=== PATIENT | male | born 1965 | race Caucasian/White ===

== ENCOUNTER → 2017-06-05 | Outpatient (REF) | payer MEDICARE, MEDICAID | LOC: M SFHCLERA 11:49 | DX: J02.9 Acute pharyngitis, unspecified (principal) ==

== ENCOUNTER 2018-12-10 14:17 | Observation (INO) | payer MEDICAID, MEDICARE ==
[~2018-12-10] VITALS: Ht 165.1 cm; Wt 110.9 kg
[2018-12-10] MEDS: LevoFLOXacin IV 750 MG in APPROPRIATE DILUENT 1 EA IV SCH (01:25)
[~2018-12-10 14:17] MED LIST: /LOR25TA PO; ASPI81TA7 PO; BENA20TA2 PO; FLEX10TA2 PO; IBUPPOW25 PO; LIDO1DIS2 TD; LIPI10TA PO; MAPA500T17 PO; NEXI1CAP3 PO
[2018-12-10] MEDS ORDERED: LOPR1TAB6 PO (14:32)
[2018-12-10] MEDS ORDERED: FLON1SPR (14:32)
[2018-12-10] MEDS ORDERED: ATOR80TA59 PO (14:32)
[2018-12-10] MEDS ORDERED: LOSA50TA88 PO (14:32)
[2018-12-10] MEDS ORDERED: IBUP200C25 PO (14:33)
[2018-12-10] MEDS ORDERED: OMEP40CA2 PO (14:33)
[2018-12-10] MEDS ORDERED: CYMB1CAP5 PO (14:34)
[2018-12-10 15:25] LABS: BASO % 0.3 % (0.0-1.0); HEMATOCRIT 49.6 % (42.0-52.0); HEMOGLOBIN 16.7 g/dl (13.5-17.5); LYMPH # 0.7 10^3/uL (1.5-4.5); LYMPH % 4.7 % (24.0-44.0); MEAN CORPUSCULAR HGB CONC 33.7 g/dl (32.0-36.5); MEAN CORPUSCULAR VOLUME 89.2 fl (80.0-96.0); NEUTROPHILS % 87.4 % (36.0-66.0); PLATELET COUNT, AUTOMATED 119 10^3/uL (150-450); RED BLOOD COUNT 5.56 10^6/uL (4.30-6.10); WHITE BLOOD COUNT 13.8 10^3/uL (4.0-10.0)
[2018-12-10 15:33] LABS: ALBUMIN 3.5 GM/DL (3.2-5.2); BILIRUBIN,DIRECT 0.6 MG/DL (0.0-0.2); BILIRUBIN,TOTAL 1.9 MG/DL (0.2-1.0); CALCIUM LEVEL 8.9 MG/DL (8.5-10.1); CREATININE FOR GFR 1.37 MG/DL (0.70-1.30); GLOMERULAR FILTRATION RATE 57.4 (>56); POTASSIUM SERUM 3.3 MEQ/L (3.5-5.1); TOTAL PROTEIN 6.6 GM/DL (6.4-8.2)
[2018-12-10] MEDS ORDERED: NS 1,000 ML IV ONE ×2 (16:15→21:00)
[2018-12-10] MEDS ORDERED: ISOVUE-370 76% 100ML VIAL (Q9967) As Ordered ONE (16:22)
[2018-12-10] MEDS: ONDANSETRON 4MG/2ML VIAL (J2405) IV PRN (16:30)
[2018-12-10] MEDS ORDERED: KETOROLAC 30 MG/ML VIAL (J1885) IV ONE (16:45)
--- NOTE | 2018-12-10 17:22 | REP ---
HISTORY: Diffuse abdominal pain. COMPARISON: None. CONTRAST: 100 mL [id number]. The lung bases are clear with the exception of dependent subsegmental atelectatic changes. The liver is without an abnormal enhancing lesion, however, scattered subcentimeter sized focal areas of low density are present, too small for CT characterization but likely representing either focal fatty deposits or tiny hepatic cysts. The gallbladder, spleen, pancreas, adrenal glands, and kidneys are within normal limits. The abdominal aorta and periaortic regions are within normal limits. The bowel loops and their mesenteries are within normal limits. CT PELVIS: The pelvic bowel loops and their mesenteries are within normal limits. There is evidence of thickening of the [place] of the urinary bladder, however, the urinary bladder is not adequately distended. This is seen in conjunction with evidence of mild fatty infiltration surrounding the urinary bladder. There is prostatomegaly and corpora amylacea. There is no free fluid or free air in the pelvis. There is no evidence of pelvic sidewall adenopathy. Bone window technique throughout the exam shows the osseous structures to be within normal limits for the patient's age. IMPRESSION: 1. There is evidence of urinary bladder wall thickening with mild perivesicular fatty infiltration as described above suggesting the clinical diagnosis of cystitis. This is seen in conjunction with prostatomegaly. 2. Tiny focal areas of low density in the hepatic parenchyma as described above. Electronically Signed by Devyn Concepcion DO 12/13/2018 12:02 P
--- NOTE | 2018-12-10 17:29 | REP ---
CHEST, TWO VIEWS: Two views of the chest are performed. There is mild bibasilar fibro atelectatic change. There is mild elevation of the right hemidiaphragm. The heart is not enlarged. The mediastinal silhouette appears unremarkable. There are mild degenerative changes of the spine. IMPRESSION: Mild bibasilar fibro atelectatic change. Electronically Signed by Qamar Bolden MD 12/14/2018 05:43 P
[2018-12-10] MEDS ORDERED: ACETAMINOPHEN 500 MG TAB PO ONE (18:45)
[2018-12-10] MEDS ORDERED: IMIPENEM/CILASTATIN 500 MG in D5W MINI-BAG PLUS 100 ML IV ONE (21:00)
[2018-12-10] MEDS ORDERED: ESOM1CAP5 PO (21:17)
[2018-12-10] MEDS ORDERED: ACET-683 PO (21:17)
[2018-12-10] MEDS ORDERED: ASPI81TA85 PO (21:17)
[2018-12-10] MEDS ORDERED: LIDO5DIS41 TD (21:17)
[2018-12-10] MEDS ORDERED: FLUTICASONE PROP 0.05% NASAL SPRAY 16 GM (FLONASE) PRN (22:30)
[2018-12-10] MEDS ORDERED: MAALOX 30 ML SUSP *UDC PO PRN (22:30)
[2018-12-10] MEDS ORDERED: LIDOCAINE 5% (LIDODERM) PATCH TD PRN (22:30)
[2018-12-10] MEDS ORDERED: MOM 30ML SUSPENSION UDC PO PRN (22:30)
--- NOTE | 2018-12-10 22:34 | HPEPDOC ---
General Date of Admission 12/10/18 Date of Service: Dec 10, 2018 Attending Physician: ARIANNA EVANS MD Chief Complaint The patient is a 53-year-old male admitted with a reason for visit of Groin Pain . Source: Patient Exam Limitations: No limitations Timing/Duration: Day(s) Severity: Moderate Associated Symptoms: Other (, dysuria) History of Present Illness 53 years old white male with past medical history of hypertension, hyperlipidemia, depression, back injury, presented with chief complaints of pain in lower abdomen with burning micturition since 1-2 days, as per patient, symptoms started spontaneously without any inciting factor. He has a severe groin pain along with burning in urination whenever he goes to bathroom, declines fever discharge of blood in the urine. Declines any trauma or sexual intercourse recently Patient is being admitted with the diagnosis of cystitis with possible possible prostatitis Home Medications Scheduled Aspirin (Aspir 81) 81 Mg Tablet.dr, 81 MG PO DAILY, (Reported) Atorvastatin Calcium (Atorvastatin Calcium) 80 Mg Tablet, 80 MG PO DAILY, (Reported) Duloxetine Hcl (Cymbalta) 30 Mg Capsule.dr, 30 MG PO TID, (Reported) Esomeprazole Magnesium (Esomeprazole Magnesium) 40 Mg Capsule.dr, 40 MG PO BID, (Reported) Losartan Potassium (Losartan Potassium) 50 Mg Tablet, 50 MG PO DAILY, (Reported) Metoprolol Tartrate (Lopressor) 50 Mg Tablet, 50 MG PO BID, (Reported) Scheduled PRN Acetaminophen (Acetaminophen) 500 Mg Tablet, 500 MG PO DAILY PRN for PAIN, (Reported) Fluticasone Propionate (Flonase Allergy Relief) 9.9 Ml [place].susp, 50 MCG NA DAILY PRN for CONGESTION, (Reported) Ibuprofen (Ibuprofen) 200 Mg Capsule, 200 MG PO DAILY PRN for PAIN, (Reported) Lidocaine (Lidoderm) 5% Adh..patch, 1 PATCH TD DAILY PRN for PAIN, (Reported) APPLIES TO LOWER BACK Allergies Coded Allergies: Penicillins (Verified Allergy, Severe, anaphylaxis, 12/10/18) hydrochlorothiazide (Verified Adverse Reaction, Intermediate, tachycardia, 12/10/18) diclofenac (Verified Adverse Reaction, Mild, anxiety, 12/10/18) Past Medical History Medical History Hypertension, hyperlipidemia, depression, back injury Surgical History Engram told removal and a cholesteatoma removal Family History Father has diabetes mellitus and hyperlipidemia and daughter has epilepsy Social History * Smoker: Denies, chew Alcohol: Denies Drugs: denies A-FIB/CHADSVASC A-FIB History Current/History of A-Fib/PAF?: No Review of Systems Constitutional: Denies: Chills, Fever, Malaise, Night Sweats, Weakness, Fatigue, Weight Loss, Lethargy, Other Eyes: Denies: Pain, Vision change, Conjunctivae inflammation, Eyelid inflammation, Redness, Other ENT: Denies: Head Aches, Ear Pain, Dysphagia, Sinus Congestion, Post Nasal Drip, Sore Throat, Epistaxis, Other Symptoms Skin: Denies: Rash, Lesions, Jaundice, Bruising, Itching, Dry, Breakdown, Nail Changes, Other Pulmonary: Denies: Dyspnea, Cough, Pleuritic Chest Pain, Other Symptoms Cardiovascular: Denies: Chest Pain, Palpitations, Orthopnea, Paroxysmal Noc. D yspnea, Edema, Lt Headedness, Other Symptoms Gastrointestinal: Denies: Nausea, Vomiting, Abdominal Pain, Diarrhea, Constipation, Melena, Hematochezia, Other Symptoms Genitourinary: Reports: Dysuria, Other Symptoms (, groin pain) Hematologic: Denies: Bruising, Bleeding Excessively, Petecchia, Purpura, Enlarged Lymph Nodes, Other Hematologic Endocrine: Denies: Polydipsia, Polyphagia, Polyuria, Heat Intolerance, Cold Intolerance, Other Endocrine Sx Musculoskeletal: Denies: Neck Pain, Back Pain, Shoulder Pain, Arm Pain, Hand Pain, Leg Pain, Foot Pain, Joint Pain, Muscle Pain, Spasms, Other Symptoms Neurological: Denies: Weakness, Numbness, Incoordination, Change in speech, Confusion, Seizures, Other Symptoms Psych: Denies: Mood Normal, Anxiety, Depression, Memory Issues, Thoughts of Self Harm, Anger, Thoughts of Harming Other, Other Psych Physical Examination General Exam: Positive: Alert, Cooperative Eye Exam: Positive: PERRLA, Conjunctiva & lids normal ENT Exam: Positive: Atraumatic, Mucous membr. moist/pink Neck Exam: Positive: Supple Chest Exam: Positive: Clear to auscultation, Normal air movement Heart Exam: Positive: Rate Normal, Normal S1, Normal S2 Abdomen Exam: Positive: Normal bowel sounds, Soft Extremity Exam: Positive: Edema Skin Exam: Positive: Nl turgor and temperature Neuro Exam: Positive: Normal Gait, Normal Speech Psych Exam: Positive: Mental status NL, Mood NL, Oriented x 3 Vital Signs Vital Signs Date Time Temp Pulse Resp B/P (MAP) Pulse Ox O2 Delivery O2 Flow Rate FiO2 12/10/18 21:32 99.5 92 109/73 (85) 98 12/10/18 18:25 18 Room Air Laboratory Data Labs 24H Laboratory Tests 2 12/10/18 14:54: Immature Granulocyte % (Auto) 0.6, White Blood Count 13.8H, Red Blood Count 5.56, Hemoglobin 16.7, Hematocrit 49.6, Mean Corpuscular Volume 89.2, Mean Corpuscular Hemoglobin 30.0, Mean Corpuscular Hemoglobin Concent 33.7, Red Cell Distribution Width 13.3, Platelet Count 119L, Neutrophils (%) (Auto) 87.4H, Lymphocytes (%) (Auto) 4.7L, Monocytes (%) (Auto) 7.0H, Eosinophils (%) (Auto) 0.0, Basophils (%) (Auto) 0.3, Neutrophils # (Auto) 12.0H, Lymphocytes # (Auto) 0.7L, Monocytes # (Auto) 1.0H, Eosinophils # (Auto) 0.0, Basophils # (Auto) 0.0, Nucleated Red Blood Cells % (auto) 0.0, Anion Gap 9, Glomerular Filtration Rate 57.4, Lactic Acid Level 2.1*H, Calcium Level 8.9, Aspartate Amino Transf (AST/SGOT) 18, Alanine Aminotransferase (ALT/SGPT) 29, Alkaline Phosphatase 91, Total Bilirubin 1.9H, Direct Bilirubin 0.6H, Total Protein 6.6, Albumin 3.5, Albumin/Globulin Ratio 1.13, Amylase Level 31, Lipase 95 12/10/18 14:58: Urine Color SCOOBY, Urine Appearance CLOUDYH, Urine pH 7.0, Urine Specific [place] 1.032, Urine Protein 3+H, Urine Glucose (UA) NEGATIVE, Urine Ketones TRACEH, Urine Blood 3+H, Urine Nitrite NEGATIVE, Urine Bilirubin NEGATIVE, Urine Urobilinogen 4.0H, Urine Leukocyte Esterase 3+H, Urine WBC (Auto) TNTCH, Urine RBC (Auto) TNTCH, Urine Hyaline Casts (Auto) 0, Urine Bacteria (Auto) NEGATIVE, Urine Squamous Epithelial Cells 0, Urine Mucus (Auto) SMALL, Urine Sperm (Auto) CBC/BMP Laboratory Tests 12/10/18 14:54 Red Blood Count 5.56, Mean Corpuscular Volume 89.2, Mean Corpuscular Hemoglobin 30.0, Mean Corpuscular Hemoglobin Concent 33.7, Red Cell Distribution Width 13.3, Neutrophils (%) (Auto) 87.4 H, Lymphocytes (%) (Auto) 4.7 L, Monocytes (%) (Auto) 7.0 H, Eosinophils (%) (Auto) 0.0, Basophils (%) (Auto) 0.3, Neutrophils # (Auto) 12.0 H, Lymphocytes # (Auto) 0.7 L, Monocytes # (Auto) 1.0 H, Eosinophils # (Auto) 0.0, Basophils # (Auto) 0.0 Microbiology Microbiology 12/10/18 Blood Culture, Received Pending 12/10/18 Urine Culture, Received Pending Problems (1) Cystitis Status: Acute Problem Text: Patient most likely has acute cystitis of unknown etiology. Also possibly hairs, enlarged prostate with prostatitis. With patient to medical floor IV fluids normal saline 100 mL per hour Antibiotics to Levaquin 750 mg IV every 24 hours Urine cultures , Urine for GC and chlamydia , Tylenol when necessary Percocet when necessary A.m. labs DVT prophylaxis with Lovenox (2) Prostatitis Status: Acute Problem Text: We'll continue Levaquin as above Awaiting urine cultures Plan / VTE VTE Prophylaxis Ordered?: Yes ARIANNA EVANS MD Dec 10, 2018 22:34
[2018-12-10] MEDS: NS 1,000 ML IV SCH (23:27)
[2018-12-11 00:07] VITALS: BP 125/83
[2018-12-11] MEDS: METOPROLOL TART 50 MG TAB PO SCH ×3 (00:39→20:54)
[2018-12-11] MEDS: DULoxetine 30 MG CAP (CYMBALTA) PO SCH ×4 (00:39→20:50)
[2018-12-11] MEDS: ONDANSETRON 4MG/2ML VIAL (J2405) IV PRN (03:40)
[2018-12-11] MEDS: PERCOCET 5MG/325MG TAB PO PRN ×3 (03:40→20:54)
[2018-12-11] MEDS: ENOXAPARIN 40 MG/0.4 ML SYRINGE (J1650) SC SCH (06:32)
[2018-12-11 06:36] VITALS: BP 120/80
[2018-12-11] MEDS: NS 1,000 ML IV SCH ×2 (08:12→17:59)
[2018-12-11] MEDS: ATORVASTATIN 20 MG TAB PO SCH (08:12)
[2018-12-11] MEDS: DOCUSATE SODIUM 100 MG CAP PO SCH ×2 (08:13→20:42)
[2018-12-11] MEDS: ASPIRIN 81 MG ENTERIC TAB PO SCH (08:13)
[2018-12-11] MEDS: LOSARTAN 50 MG TAB PO SCH (08:13)
[2018-12-11 08:23] LABS: HEMATOCRIT 44.3 % (42.0-52.0); MEAN CORPUSCULAR VOLUME 91.2 fl (80.0-96.0); RED BLOOD COUNT 4.86 10^6/uL (4.30-6.10); WHITE BLOOD COUNT 10.2 10^3/uL (4.0-10.0)
[2018-12-11 08:50] LABS: ALBUMIN 2.7 GM/DL (3.2-5.2); BILIRUBIN,TOTAL 1.1 MG/DL (0.2-1.0); CALCIUM LEVEL 7.8 MG/DL (8.5-10.1); CREATININE FOR GFR 1.32 MG/DL (0.70-1.30); GLOMERULAR FILTRATION RATE 59.9 (>56); MAGNESIUM LEVEL 1.6 MG/DL (1.8-2.4); POTASSIUM SERUM 3.3 MEQ/L (3.5-5.1); TOTAL PROTEIN 5.7 GM/DL (6.4-8.2)
[2018-12-11] MEDS ORDERED: POTASSIUM CHLORIDE 10 MEQ SR TABLET PO ONE (09:00)
[2018-12-11] MEDS ORDERED: MAG SULF 1GM/100ML (MAG RUN) 1 GM in APPROPRIATE DILUENT 1 EA IV ONE (09:00)
[2018-12-11 09:01] LABS: HEMOGLOBIN 14.6 g/dl (13.5-17.5); PLATELET COUNT, AUTOMATED 92 10^3/uL (150-450)
--- NOTE | 2018-12-11 09:38 | ECGEPIP ---
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
[2018-12-11] MEDS: ACETAMINOPHEN TAB 650MG DOSE (2X325MG) PO PRN (09:49)
--- NOTE | 2018-12-11 12:30 | IPNPDOC ---
Date Seen The patient was seen on 12/11/18. Progress Note SUBJECTIVE: still c/o dysuria requesting something for pain. on iv levaquin due to allergy to penicillin. no c/o n/v/flank pain. c/o malodorous cloudy urine. on pyridium for pain, and anxious to go home soon. OBJECTIVE: Physical Examination VITALS: PLS SEE BELOW General Exam: Positive: Alert, Cooperative Eye Exam: Positive: PERRLA, Conjunctiva & lids normal ENT Exam: Positive: Atraumatic, Mucous membr. moist/pink Neck Exam: Positive: Supple Chest Exam: Positive: Clear to auscultation, Normal air movement Heart Exam: Positive: Rate Normal, Normal S1, Normal S2 Abdomen Exam: Positive: Normal bowel sounds, Soft Extremity Exam: Positive: Edema Skin Exam: Positive: Nl turgor and temperature Neuro Exam: Positive: Normal Gait, Normal Speech Psych Exam: Positive: Mental status NL, Mood NL, Oriented x 3 ADMISSION LABORATORY DATA 12/10/18 14:54: Immature Granulocyte % (Auto) 0.6, White Blood Count 13.8H, Red Blood Count 5.56, Hemoglobin 16.7, Hematocrit 49.6, Mean Corpuscular Volume 89.2, Mean Corpuscular Hemoglobin 30.0, Mean Corpuscular Hemoglobin Concent 33.7, Red Cell Distribution Width 13.3, Platelet Count 119L, Neutrophils (%) (Auto) 87.4H, Lymphocytes (%) (Auto) 4.7L, Monocytes (%) (Auto) 7.0H, Eosinophils (%) (Auto) 0.0, Basophils (%) (Auto) 0.3, Neutrophils # (Auto) 12.0H, Lymphocytes # (Auto) 0.7L, Monocytes # (Auto) 1.0H, Eosinophils # (Auto) 0.0, Basophils # (Auto) 0.0, Nucleated Red Blood Cells % (auto) 0.0, Anion Gap 9, Glomerular Filtration Rate 57.4, Lactic Acid Level 2.1*H, Calcium Level 8.9, Aspartate Amino Transf (AST/SGOT) 18, Alanine Aminotransferase (ALT/SGPT) 29, Alkaline Phosphatase 91, Total Bilirubin 1.9H, Direct Bilirubin 0.6H, Total Protein 6.6, Albumin 3.5, Albumin/Globulin Ratio 1.13, Amylase Level 31, Lipase 95 12/10/18 14:58: Urine Color SCOOBY, Urine Appearance CLOUDYH, Urine pH 7.0, Urine Specific [place] 1.032, Urine Protein 3+H, Urine Glucose (UA) NEGATIVE, Urine Ketones TRACEH, Urine Blood 3+H, Urine Nitrite NEGATIVE, Urine Bilirubin NEGATIVE, Urine Urobilinogen 4.0H, Urine Leukocyte Esterase 3+H, Urine WBC (Auto) TNTCH, Urine RBC (Auto) TNTCH, Urine Hyaline Casts (Auto) 0, Urine Bacteria (Auto) NEGATIVE, Urine Squamous Epithelial Cells 0, Urine Mucus (Auto) SMALL, Urine Sperm (Auto) CBC/BMP Laboratory Tests 12/10/18 14:54 Red Blood Count 5.56, Mean Corpuscular Volume 89.2, Mean Corpuscular Hemoglobin 30.0, Mean Corpuscular Hemoglobin Concent 33.7, Red Cell Distribution Width 13.3, Neutrophils (%) (Auto) 87.4 H, Lymphocytes (%) (Auto) 4.7 L, Monocytes (%) (Auto) 7.0 H, Eosinophils (%) (Auto) 0.0, Basophils (%) (Auto) 0.3, Neutrophils # (Auto) 12.0 H, Lymphocytes # (Auto) 0.7 L, Monocytes # (Auto) 1.0 H, Eosin ophils # (Auto) 0.0, Basophils # (Auto) 0.0 Microbiology Microbiology 12/10/18 Blood Culture, Received Pending 12/10/18 Urine Culture, Received Pending LABORATORY DATA, IMAGING STUDIES, MICROBIOLOGY: PLS SEE BELOW ASSESSMENT AND PLAN:53 years old white male with past medical history of hypertension, hyperlipidemia, depression, back injury, presented with chief complaints of pain in lower abdomen with burning micturition since 1-2 days, as per patient, symptoms started spontaneously without any inciting factor. He has a severe groin pain along with burning in urination whenever he goes to bathroom, declines fever discharge of blood in the urine. Declines any trauma or sexual intercourse recently Patient is being admitted with the diagnosis of cystitis with possible possible prostatitis CURRENT ACUTE ISSUES: Cystitis Patient most likely has acute cystitis of unknown etiology. Also possibly hairs, enlarged prostate with prostatitis. With patient to medical floor IV fluids normal saline 100 mL per hour Antibiotics to Levaquin 750 mg IV every 24 hours Urine cultures , Urine for GC and chlamydia , Tylenol when necessary Percocet when necessary A.m. labs DVT prophylaxis with Lovenox Prostatitis We'll continue Levaquin as above Awaiting urine cultures Hypertension, stable continued on home meds hyperlipidemia, continued on home meds depression, no acute suicidal/homicidal ideation or plan GERD no c/o pain FENG may resume home cpap morbid obesity bmi 40.7 complicating care Chronic back pain outpt fu. Plan / VTE VTE Prophylaxis Ordered?: Yes VS, I&O, 24H, Fishbone Vital Signs/I&O Vital Signs Date Time Temp Pulse Resp B/P (MAP) Pulse Ox O2 Delivery O2 Flow Rate FiO2 12/11/18 08:13 82 122/82 12/11/18 06:36 98.5 16 97 12/10/18 18:25 Room Air I&O- Last 24 Hours up to 6 AM 12/11/18 06:00 Intake Total 610 ml Output Total 100 ml Balance 510 ml Laboratory Data 24H LABS Laboratory Tests 2 12/10/18 14:54: Immature Granulocyte % (Auto) 0.6, White Blood Count 13.8H, Red Blood Count 5.56, Hemoglobin 16.7, Hematocrit 49.6, Mean Corpuscular Volume 89.2, Mean Corpuscular Hemoglobin 30.0, Mean Corpuscular Hemoglobin Concent 33.7, Red Cell Distribution Width 13.3, Platelet Count 119L, Neutrophils (%) (Auto) 87.4H, Lymphocytes (%) (Auto) 4.7L, Monocytes (%) (Auto) 7.0H, Eosinophils (%) (Auto) 0.0, Basophils (%) (Auto) 0.3, Neutrophils # (Auto) 12.0H, Lymphocytes # (Auto) 0.7L, Monocytes # (Auto) 1.0H, Eosinophils # (Auto) 0.0, Basophils # (Auto) 0.0, Nucleated Red Blood Cells % (auto) 0.0, Anion Gap 9, Glomerular Filtration Rate 57.4, Lactic Acid Level 2.1*H, Calcium Level 8.9, Aspartate Amino Transf (AST/SGOT) 18, Alanine Aminotransferase (ALT/SGPT) 29, Alkaline Phosphatase 91, Total Bilirubin 1.9H, Direct Bilirubin 0.6H, Total Protein 6.6, Albumin 3.5, Albumin/Globulin Ratio 1.13, Amylase Level 31, Lipase 95 7/26/19 14:58: Urine Color SCOO[place], Urine Appearance CLOUDYH, Urine pH 7.0, Urine Specific [place] 1.032, Urine Protein 3+H, Urine Glucose (UA) NEGATIVE, Urine Ketones TRACEH, Urine Blood 3+H, Urine Nitrite NEGATIVE, Urine Bilirubin NEGATIVE, Urine Urobilinogen 4.0H, Urine Leukocyte Esterase 3+H, Urine WBC (Auto) TNTCH, Urine RBC (Auto) TNTCH, Urine Hyaline Casts (Auto) 0, Urine Bacteria (Auto) NEGATIVE, Urine Squamous Epithelial Cells 0, Urine Mucus (Auto) SMALL, Urine Sperm (Auto) 12/11/18 08:05: Anion Gap 6L, Glomerular Filtration Rate 59.9, Calcium Level 7.8L, Aspartate Amino Transf (AST/SGOT) 18, Alanine Aminotransferase (ALT/SGPT) 21, Alkaline Phosphatase 77, Total Bilirubin 1.1H, Total Protein 5.7L, Albumin 2.7#L, Albumin/Globulin Ratio 0.90L, Blood Urea Nitrogen 25H, Creatinine 1.32H, Sodium Level 137, Potassium Level 3.3L, Chloride Level 103, Carbon Dioxide Level 28, Magnesium Level 1.6L CBC/BMP Laboratory Tests 12/10/18 14:54 Red Blood Count 5.56, Mean Corpuscular Volume 89.2, Mean Corpuscular Hemoglobin 30.0, Mean Corpuscular Hemoglobin Concent 33.7, Red Cell Distribution Width 13.3, Neutrophils (%) (Auto) 87.4 H, Lymphocytes (%) (Auto) 4.7 L, Monocytes (%) (Auto) 7.0 H, Eosinophils (%) (Auto) 0.0, Basophils (%) (Auto) 0.3, Neutrophils # (Auto) 12.0 H, Lymphocytes # (Auto) 0.7 L, Monocytes # (Auto) 1.0 H, Eosinophils # (Auto) 0.0, Basophils # (Auto) 0.0 12/11/18 08:05 Calcium Level 7.8 L, Aspartate Amino Transf (AST/SGOT) 18, Alanine Aminotransferase (ALT/SGPT) 21, Alkaline Phosphatase 77, Total Bilirubin 1.1 H, Total Protein 5.7 L, Albumin 2.7 #L Microbiology Microbiology 12/11/18 Blood Culture, Received Pending 12/10/18 Blood Culture, Received Pending 12/10/18 Urine Culture, Received Pending VIMAL REYNA MD Dec 11, 2018 09:01
[2018-12-11 14:00] VITALS: BP 136/82
[2018-12-11] MEDS: PHENAZOPYRIDINE 100 MG TAB PO SCH ×2 (15:08→20:53)
[2018-12-11] MEDS ORDERED: **NOTE PATIENT COMMENT** MISC XX SCH (21:00)
[2018-12-11 22:00] VITALS: BP 139/91
[2018-12-11] MEDS: LevoFLOXacin IV 750 MG in APPROPRIATE DILUENT 1 EA IV SCH (23:42)
[2018-12-12] MEDS: PERCOCET 5MG/325MG TAB PO PRN (03:28)
[2018-12-12] MEDS: NS 1,000 ML IV SCH (05:07)
[2018-12-12] MEDS: ENOXAPARIN 40 MG/0.4 ML SYRINGE (J1650) SC SCH (05:07)
[2018-12-12 06:00] VITALS: BP 112/72
[2018-12-12] MEDS ORDERED: BACITAB PO (07:20)
[2018-12-12] MEDS ORDERED: LEVA750T7 PO (07:20)
[2018-12-12] MEDS ORDERED: PHEN-593 PO (07:21)
[2018-12-12] MEDS ORDERED: POTASSIUM CHLORIDE 10 MEQ SR TABLET PO ONE (08:00)
[2018-12-12 08:09] LABS: BASO % 0.4 % (0.0-1.0); EOS # 0.1 10^3/uL (0.0-0.50); EOS % 2.3 % (0.0-3.0); HEMATOCRIT 46.6 % (42.0-52.0); HEMOGLOBIN 15.3 g/dl (13.5-17.5); LYMPH # 0.5 10^3/uL (1.5-4.5); LYMPH % 10.2 % (24.0-44.0); MEAN CORPUSCULAR HEMOGLOBIN 30.3 pg (27.0-33.0); MEAN CORPUSCULAR HGB CONC 32.8 g/dl (32.0-36.5); MEAN CORPUSCULAR VOLUME 92.3 fl (80.0-96.0); MONO # 0.3 10^3/uL (0.0-0.8); MONO % 6.2 % (0.0-5.0); NEUTROPHILS # 4.3 10^3/uL (1.8-7.7); NEUTROPHILS % 80.3 % (36.0-66.0); RED BLOOD COUNT 5.05 10^6/uL (4.30-6.10); WHITE BLOOD COUNT 5.3 10^3/uL (4.0-10.0)
[2018-12-12 08:12] LABS: PLATELET COUNT, AUTOMATED 95 10^3/uL (150-450)
[2018-12-12 08:22] LABS: BLOOD UREA NITROGEN 18 MG/DL (7-18); CALCIUM LEVEL 7.7 MG/DL (8.5-10.1); CARBON DIOXIDE LEVEL 27 MEQ/L (21-32); CHLORIDE LEVEL 102 MEQ/L (98-107); CREATININE FOR GFR 1.22 MG/DL (0.70-1.30); GLOMERULAR FILTRATION RATE > 60.0 (>56); GLUCOSE, FASTING 91 MG/DL (70-100); POTASSIUM SERUM 3.6 MEQ/L (3.5-5.1); SODIUM LEVEL 136 MEQ/L (136-145)
[2018-12-12] MEDS: LOSARTAN 50 MG TAB PO SCH (08:31)
[2018-12-12] MEDS: DULoxetine 30 MG CAP (CYMBALTA) PO SCH (08:31)
[2018-12-12] MEDS: PHENAZOPYRIDINE 100 MG TAB PO SCH (08:31)
[2018-12-12] MEDS: ASPIRIN 81 MG ENTERIC TAB PO SCH (08:31)
[2018-12-12] MEDS: DOCUSATE SODIUM 100 MG CAP PO SCH (08:31)
[2018-12-12] MEDS: ATORVASTATIN 20 MG TAB PO SCH (08:31)
[2018-12-12 08:32] VITALS: BP 124/72
[2018-12-12] MEDS: METOPROLOL TART 50 MG TAB PO SCH (08:32)
[2018-12-12] MEDS: ACETAMINOPHEN TAB 650MG DOSE (2X325MG) PO PRN (08:32)
--- NOTE | 2018-12-12 15:05 | DS.PDOC ---
Discharge Summary General Date of Admission Dec 10, 2018 at 14:18 Date of Discharge December 12, 2018 Discharge Summary DISCHARGE DIAGNOSES: ACUTE BACTERIAL PROSTATITIS CYSTITIS SEPSIS DUE TO CYSTITIS MORBID OBESITY BMI 40 HTN GERD DYSLIPIDEMIA BPH DEPRESSION FENG CHRONIC BACK PAIN DISCHARGE MEDICATIONS: PLS SEE BELOW HISTORY OF PRESENTING ILLNESS: 53 years old white male with past medical history of hypertension, hyperlipidemia, depression, back injury, presented with chief complaints of pain in lower abdomen with burning micturition since 1-2 days, as per patient, symptoms started spontaneously without any inciting factor. He has a severe groin pain along with burning in urination whenever he goes to bathroom, declines fever discharge of blood in the urine. Declines any trauma or sexual intercourse recently Patient is being admitted with the diagnosis of cystitis with possible possible prostatitis HOSPITAL COURSE: Cystitis Patient most likely has acute cystitis of unknown etiology. Also possibly enlarged prostate with prostatitis. admitted to medical floor S/P IV fluids normal saline 100 mL per hour Antibiotics to Levaquin 750 mg IV every 24 hours Urine cultures , Urine for GC and chlamydia , Tylenol when necessary Percocet when necessary urine cx: E coli sensitive to levaquin Prostatitis We'll continue Levaquin as above Awaiting urine cultures Hypertension, stable continued on home meds hyperlipidemia, continued on home meds depression, no acute suicidal/homicidal ideation or plan GERD no c/o pain FENG may resume home cpap morbid obesity bmi 40.7 complicating care Chronic back pain outpt fu. Plan / VTE VTE Prophylaxis Ordered?: Yes DISCHARGE Physical Examination VITALS: PLS SEE BELOW General Exam: Positive: Alert, Cooperative Eye Exam: Positive: PERRLA, Conjunctiva & lids normal ENT Exam: Positive: Atraumatic, Mucous membr. moist/pink Neck Exam: Positive: Supple Chest Exam: Positive: Clear to auscultation, Normal air movement Heart Exam: Positive: Rate Normal, Normal S1, Normal S2 Abdomen Exam: Positive: Normal bowel sounds, Soft Extremity Exam: Positive: Edema Skin Exam: Positive: Nl turgor and temperature Neuro Exam: Positive: Normal Gait, Normal Speech Psych Exam: Positive: Mental status NL, Mood NL, Oriented x 3 ADMISSION LABORATORY DATA 12/10/18 14:54: Immature Granulocyte % (Auto) 0.6, White Blood Count 13.8H, Red Blood Count 5.56, Hemoglobin 16.7, Hematocrit 49.6, Mean Corpuscular Volume 89.2, Mean Corpuscular Hemoglobin 30.0, Mean Corpuscular Hemoglobin Concent 33.7, Red Cell Distribution Width 13.3, Platelet Count 119L, Neutrophils (%) (Auto) 87.4H, Lymphocytes (%) (Auto) 4.7L, Monocytes (%) (Auto) 7.0H, Eosinophils (%) (Auto) 0.0, Basophils (%) (Auto) 0.3, Neutrophils # (Auto) 12.0H, Lymphocytes # (Auto) 0.7L, Monocytes # (Auto) 1.0H, Eosinophils # (Auto) 0.0, Basophils # (Auto) 0.0, Nucleated Red Blood Cells % (auto) 0.0, Anion Gap 9, Glomerular Filtration Rate 57.4, Lactic Acid Level 2.1*H, Calcium Level 8.9, Aspartate Amino Transf (AST/SGOT) 18, Alanine Aminotransferase (ALT/SGPT) 29, Alkaline Phosphatase 91, Total Bilirubin 1.9H, Direct Bilirubin 0.6H, Total Protein 6.6, Albumin 3.5, Albumin/Globulin Ratio 1.13, Amylase Level 31, Lipase 95 12/10/18 14:58: Urine Color SCOOBY, Urine Appearance CLOUDYH, Urine pH 7.0, Urine Specific [place] 1.032, Urine Protein 3+H, Urine Glucose (UA) NEGATIVE, Urine Ketones TRACEH, Urine Blood 3+H, Urine Nitrite NEGATIVE, Urine Bilirubin NEGATIVE, Urine Urobilinogen 4.0H, Urine Leukocyte Esterase 3+H, Urine WBC (Auto) TNTCH, Urine RBC (Auto) TNTCH, Urine Hyaline Casts (Auto) 0, Urine Bacteria (Auto) NEGATIVE, Urine Squamous Epithelial Cells 0, Urine Mucus (Auto) SMALL, Urine Sperm (Auto) CBC/BMP Laboratory Tests 12/10/18 14:54 Red Blood Count 5.56, Mean Corpuscular Volume 89.2, Mean Corpuscular Hemoglobin 30.0, Mean Corpuscular Hemoglobin Concent 33.7, Red Cell Distribution Width 13.3, Neutrophils (%) (Auto) 87.4 H, Lymphocytes (%) (Auto) 4.7 L, Monocytes (%) (Auto) 7.0 H, Eosinophils (%) (Auto) 0.0, Basophils (%) (Auto) 0.3, Neutrophils # (Auto) 12.0 H, Lymphocytes # (Auto) 0.7 L, Monocytes # (Auto) 1.0 H, Eosinophils # (Auto) 0.0, Basophils # (Auto) 0.0 Microbiology Microbiology 12/10/18 Blood Culture, Received Pending 12/10/18 Urine Culture, Received Pending LABORATORY DATA, IMAGING STUDIES, MICROBIOLOGY: PLS SEE BELOW TIME SPENT ON DISCHARGE: 32 MINUTES Vital Signs/I&Os Vital Signs Date Time Temp Pulse Resp B/P (MAP) Pulse Ox O2 Delivery O2 Flow Rate FiO2 12/12/18 08:32 94 124/72 12/12/18 06:00 98.6 18 98 12/10/18 18:25 Room Air I&O- Last 24 Hours up to 6 AM 12/12/18 06:00 Intake Total 1990 ml Output Total 675 ml Balance 1315 ml Laboratory Data Labs 24H Laboratory Tests 2 12/12/18 07:47: Immature Granulocyte % (Auto) 0.6, White Blood Count 5.3, Red Blood Count 5.05, Hemoglobin 15.3, Hematocrit 46.6, Mean Corpuscular Volume 92.3, Mean Corpuscular Hemoglobin 30.3, Mean Corpuscular Hemoglobin Concent 32.8, Red Cell Distribution Width 13.7, Platelet Count 95L, Neutrophils (%) (Auto) 80.3H, Lymphocytes (%) (Auto) 10.2L, Monocytes (%) (Auto) 6.2H, Eosinophils (%) (Auto) 2.3, Basophils (%) (Auto) 0.4, Neutrophils # (Auto) 4.3, Lymphocytes # (Auto) 0.5L, Monocytes # (Auto) 0.3, Eosinophils # (Auto) 0.1, Basophils # (Auto) 0.0, Nucleated Red Blood Cells % (auto) 0.0, Anion Gap 7L, Glomerular Filtration Rate > 60.0, Blood Urea Nitrogen 18, Creatinine 1.22, Sodium Level 136, Potassium Level 3.6, Chloride Level 102, Carbon Dioxide Level 27, Calcium Level 7.7L CBC/BMP Laboratory Tests 12/12/18 07:47 Red Blood Count 5.05, Mean Corpuscular Volume 92.3, Mean Corpuscular Hemoglobin 30.3, Mean Corpuscular Hemoglobin Concent 32.8, Red Cell Distribution Width 13.7, Neutrophils (%) (Auto) 80.3 H, Lymphocytes (%) (Auto) 10.2 L, Monocytes (%) (Auto) 6.2 H, Eosinophils (%) (Auto) 2.3, Basophils (%) (Auto) 0.4, Neutrophils # (Auto) 4.3, Lymphocytes # (Auto) 0.5 L, Monocytes # (Auto) 0.3, Eosinophils # (Auto) 0.1, Basophils # (Auto) 0.0, Calcium Level 7.7 L Microbiology Microbiology 12/11/18 Blood Culture - Preliminary, Resulted No growth after 24 hours . All specim... 12/10/18 Blood Culture - Preliminary, Resulted No growth after 24 hours . All specim... 12/10/18 Urine Culture - Final, Complete Escherichia Coli Discharge Medications Scheduled Aspirin (Aspir 81) 81 Mg Tablet.dr, 81 MG PO DAILY, (Reported) Atorvastatin Calcium (Atorvastatin Calcium) 80 Mg Tablet, 80 MG PO DAILY, (Reported) Duloxetine Hcl (Cymbalta) 30 Mg Capsule.dr, 30 MG PO TID, (Reported) Esomeprazole Magnesium (Esomeprazole Magnesium) 40 Mg Capsule.dr, 40 MG PO BID, (Reported) L.acidoph/L.bulg/B.bif/S.therm (Bacid Caplet) 1 Each Tablet, 1 TAB PO [facility] Levofloxacin (Levaquin) 750 Mg Tablet, 750 MG PO DAILY Losartan Potassium (Losartan Potassium) 50 Mg Tablet, 50 MG PO DAILY, (Reported) Metoprolol Tartrate (Lopressor) 50 Mg Tablet, 50 MG PO BID, (Reported) Phenazopyridine HCl (Phenazopyridine HCl) 100 Mg Tablet, 200 MG PO TID Scheduled PRN Acetaminophen (Acetaminophen) 500 Mg Tablet, 500 MG PO DAILY PRN for PAIN, (Reported) Fluticasone Propionate (Flonase Allergy Relief) 9.9 Ml [place].susp, 50 MCG NA DAILY PRN for CONGESTION, (Reported) Ibuprofen (Ibuprofen) 200 Mg Capsule, 200 MG PO DAILY PRN for PAIN, (Reported) Lidocaine (Lidoderm) 5% Adh..patch, 1 PATCH TD DAILY PRN for PAIN, (Reported) APPLIES TO LOWER BACK Allergies Coded Allergies: Penicillins (Verified Allergy, Severe, anaphylaxis, 12/10/18) hydrochlorothiazide (Verified Adverse Reaction, Intermediate, tachycardia, 12/10/18) diclofenac (Verified Adverse Reaction, Mild, anxiety, 12/10/18) VIMAL REYNA MD Dec 12, 2018 14:51
== END 2018-12-12 10:55 | disposition home or self-care (01) ==
LOC: EDBD 14:17 → M ED 14:17 → M ED INP 14:18 → M MS5PR 22:43
PROVIDERS: ADMIT Internal Medicine; ATTEND Internal Medicine
DX: N41.0 Acute prostatitis (principal); N30.00 Acute cystitis without hematuria; B96.20 Unspecified Escherichia coli [E. coli] as the cause of diseases classified elsewhere; A41.51 Sepsis due to Escherichia coli [E. coli]; E66.01 Morbid (severe) obesity due to excess calories; I10 Essential (primary) hypertension; K21.9 Gastro-esophageal reflux disease without esophagitis; E78.49 Other hyperlipidemia; N40.0 Benign prostatic hyperplasia without lower urinary tract symptoms; F32.9 Major depressive disorder, single episode, unspecified; G47.33 Obstructive sleep apnea (adult) (pediatric); M54.5 Low back pain; Z79.82 Long term (current) use of aspirin; Z79.899 Other long term (current) drug therapy; Z88.0 Allergy status to penicillin; Z88.8 Allergy status to other drugs, medicaments and biological substances
CPT/HCPCS: 36415; 71046; 74177; 80048; 80053; 80076; 81001; 82150; 83605; 83690; 83735; 85025; 85027; 85049; 85055; 87040; 87077; 87088; 87186; 93005; 96365; 96372; 96375; 96376; 99285; G0378; G0463; J1650; J1885; J1956; J2405; J3475; Q9967

== ENCOUNTER 2021-08-15 13:54 | Emergency (ER) | payer MEDICAID, MEDICARE ==
[~2021-08-15] VITALS: Ht 165.1 cm; Wt 106.4 kg
[2021-08-15 13:54] VITALS: BP 134/98
[~2021-08-15 13:54] MED LIST changes: +ACET-683 PO; +ASPI81TA86 PO; +ATOR80TA59 PO; +BACITAB PO; +CIPR500T3 PO; +CYCL-707 PO; +CYMB1CAP5 PO; +ESOM1CAP5 PO; +FLON1SPR; +IBUP200C25 PO; +LEVA750T7 PO; +LIDO5DIS41 TD; +LOPR1TAB6 PO; +LOSA50TA28 PO; +OMEP40CA4 PO; +PHEN1TAB73 PO; +PRED10PA2 PO; +SILO8CAP PO
[2021-08-15] MEDS ORDERED: EZET10TA21 PO (14:09)
== END 2021-08-15 17:10 | disposition left against medical advice (07) ==
LOC: M ED 13:54
DX: Z53.21 Procedure and treatment not carried out due to patient leaving prior to being seen by health care provider (principal)

== ENCOUNTER → 2022-02-23 | Outpatient (CLI) | payer MEDICARE ==
[~2022-02-23] MED LIST changes: +BAYE81TA7 PO; +DULO1CAP5 PO; +ESOM40CA35 PO; +EZET10TA21 PO; +HYDR-3713 PO; +VITA100016 PO
== END ==
LOC: M LABSMTC 11:01
PROVIDERS: ATTEND Anesthesiology
DX: Z01.818 Encounter for other preprocedural examination (principal); Z11.52 Encounter for screening for COVID-19

== ENCOUNTER 2022-02-26 10:16 | Day surgery (SDC) | payer MEDICARE ==
[~2022-02-26] VITALS: Ht 165.1 cm; Wt 104.3 kg
[~2022-02-26 10:16] MED LIST changes: +NS 1,000 ML IV ONE
[2022-02-26] MEDS ORDERED: LIDOCAINE 2% 100MG/5ML SDV (FOR ANES.) As Ordered ONE (10:40)
[2022-02-26] MEDS ORDERED: propofoL 200 MG/20 ML VIAL As Ordered ONE (10:40)
[2022-02-26] MEDS ORDERED: fentaNYL 100 MCG/2 ML INJECTION As Ordered ONE (11:12)
[2022-02-26 11:55] VITALS: BP 129/90
== END 2022-02-26 12:26 | disposition home or self-care (01) ==
LOC: M OPP 10:16
PROVIDERS: ATTEND Internal Medicine Gastroenterology
DX: Z12.11 Encounter for screening for malignant neoplasm of colon (principal); K64.0 First degree hemorrhoids; K22.89 Other specified disease of esophagus; K44.9 Diaphragmatic hernia without obstruction or gangrene; Z79.02 Long term (current) use of antithrombotics/antiplatelets; Z79.52 Long term (current) use of systemic steroids; Z79.82 Long term (current) use of aspirin; Z79.891 Long term (current) use of opiate analgesic; Z79.899 Other long term (current) drug therapy; Z88.0 Allergy status to penicillin; Z88.8 Allergy status to other drugs, medicaments and biological substances; K21.9 Gastro-esophageal reflux disease without esophagitis; I10 Essential (primary) hypertension; E78.00 Pure hypercholesterolemia, unspecified; N40.0 Benign prostatic hyperplasia without lower urinary tract symptoms
CPT/HCPCS: 43239; 88305; 88312; G0121; J3010

== ENCOUNTER 2023-06-29 11:23 | Emergency (ER) | payer MEDICARE, MEDICAID ==
[~2023-06-29] VITALS: Ht 165.1 cm; Wt 100.0 kg
[~2023-06-29 11:23] MED LIST changes: -NS 1,000 ML IV ONE
[2023-06-29 11:34] VITALS: TEMP 98
[2023-06-29] MEDS: BOOSTRIX VACCINE (TETANUS/DIPHTH/ACEL. PERTUSSIS) 0.5ML SYR IM.IMMUN ONE (12:00)
[2023-06-29 12:06] LABS: BASO % 0.8 % (0.0-1.0); EOS # 0.1 10^3/uL (0.0-0.5); EOS % 1.7 % (0.0-3.0); HEMATOCRIT 48.8 % (42.0-52.0); LYMPH % 18.4 % (24.0-44.0); MEAN CORPUSCULAR HEMOGLOBIN 29.1 pg (27.0-33.0); MEAN CORPUSCULAR HGB CONC 32.8 g/dl (32.0-36.5); MEAN CORPUSCULAR VOLUME 88.7 fl (80.0-96.0); MONO # 0.6 10^3/uL (0.0-0.8); NEUTROPHILS # 3.6 10^3/uL (1.5-8.5); NEUTROPHILS % 67.7 % (36.0-66.0); PLATELET COUNT, AUTOMATED 144 10^3/uL (150-450); WHITE BLOOD COUNT 5.3 10^3/uL (4.0-10.0)
[2023-06-29 12:29] LABS: CK-MB VALUE MASS < 1.0 NG/ML (<3.6)
[2023-06-29 12:32] LABS: BLOOD UREA NITROGEN 19 MG/DL (9-23); CALCIUM LEVEL 8.3 MG/DL (8.3-10.6); CARBON DIOXIDE LEVEL 24 MMOL/L (20-31); CHLORIDE LEVEL 107 MMOL/L (98-107); GLOMERULAR FILTRATION RATE 59.9 (>49); GLUCOSE, FASTING 120 MG/DL (74-106); MAGNESIUM LEVEL 1.5 MG/DL (1.8-2.4); POTASSIUM SERUM 4.2 MMOL/L (3.5-5.1); SODIUM LEVEL 137 MMOL/L (136-145)
[2023-06-29 12:33] LABS: FREE T4 0.76 NG/DL (0.89-1.76); THYROID STIMULATING HORMONE 0.851 uIU/ML (0.55-4.78)
[2023-06-29 12:37] LABS: CPK CREATINE PHOSPHOKINASE 327 U/L (46-171)
[2023-06-29 13:34] LABS: ALBUMIN 2.9 G/DL (3.2-5.2); BILIRUBIN,DIRECT 0.3 MG/DL (<0.4); BILIRUBIN,TOTAL 0.8 MG/DL (0.3-1.2)
[2023-06-29 13:45] VITALS: BP 128/86; O2SAT 94
[2023-06-29] MEDS ORDERED: BACI500O8 TOP (13:54)
[2023-06-29] MEDS ORDERED: LEVO1TAB40 PO (13:58)
== END 2023-06-29 14:37 | disposition left against medical advice (07) ==
LOC: M ED 11:23 → EDBD 11:23 → M ED 14:37
DX: S01.01XA Laceration without foreign body of scalp, initial encounter (principal); J01.90 Acute sinusitis, unspecified; R55 Syncope and collapse; Z53.9 Procedure and treatment not carried out, unspecified reason; X58.XXXA Exposure to other specified factors, initial encounter; Y92.9 Unspecified place or not applicable; Y93.9 Activity, unspecified; Y99.9 Unspecified external cause status; I10 Essential (primary) hypertension; F32.A Depression, unspecified; Z79.82 Long term (current) use of aspirin; Z79.899 Other long term (current) drug therapy; Z88.0 Allergy status to penicillin; Z88.8 Allergy status to other drugs, medicaments and biological substances

== ENCOUNTER → 2025-01-08 | Outpatient (CLI) | payer MEDICARE, OTHER, MEDICAID ==
[~2025-01-08] MED LIST changes: +BACI500O8 TOP; +ESOM1CAP20 PO; -ESOM1CAP5 PO; +LEVO1TAB40 PO; +LIDO1ADH93 TD; -LIDO5DIS41 TD; -SILO8CAP PO; +SILO8CAP3 PO
== END ==
LOC: M RAD 10:22
PROVIDERS: ATTEND Registered Nurse
DX: M25.531 Pain in right wrist (principal)

== ENCOUNTER → 2025-01-09 | Outpatient (CLI) | payer OTHER | LOC: M SLEEP 20:00 | PROVIDERS: ATTEND Internal Medicine | DX: G47.33 Obstructive sleep apnea (adult) (pediatric) (principal) ==

== ENCOUNTER 2025-01-16 10:14 | Emergency (ER) | payer OTHER ==
[~2025-01-16] VITALS: Ht 165.1 cm; Wt 99.7 kg
[2025-01-16 10:20] VITALS: TEMP 97.6
[2025-01-16 14:48] VITALS: BP 145/106; O2SAT 98
== END 2025-01-16 14:41 | disposition home or self-care (01) ==
LOC: M ED 11:43
DX: M25.531 Pain in right wrist (principal); I10 Essential (primary) hypertension; K21.9 Gastro-esophageal reflux disease without esophagitis; Z88.0 Allergy status to penicillin; Z88.8 Allergy status to other drugs, medicaments and biological substances; Z79.1 Long term (current) use of non-steroidal anti-inflammatories (NSAID); Z79.899 Other long term (current) drug therapy

== ENCOUNTER → 2025-02-13 | Outpatient (CLI) | payer MEDICARE ==
[~2025-02-13] MED LIST changes: -EZET10TA21 PO; +EZET10TA57 PO
== END ==
LOC: M WUC 11:42
PROVIDERS: ATTEND Nurse Practitioner Family
DX: M25.562 Pain in left knee (principal)

== ENCOUNTER → 2025-03-23 | Outpatient (CLI) | payer OTHER, MEDICARE | LOC: M SLEEP 20:00 | PROVIDERS: ATTEND Internal Medicine | DX: G47.33 Obstructive sleep apnea (adult) (pediatric) (principal) ==

== ENCOUNTER 2025-05-15 16:32 | Emergency (ER) | payer OTHER, MEDICARE ==
[~2025-05-15] VITALS: Ht 165.1 cm; Wt 93.0 kg
[2025-05-15 16:34] VITALS: BP 160/100; TEMP 97.5; O2SAT 99
== END 2025-05-15 18:49 | disposition home or self-care (01) ==
LOC: M ED 16:32
DX: M54.50 Low back pain, unspecified (principal); I10 Essential (primary) hypertension; Z88.0 Allergy status to penicillin; Z88.8 Allergy status to other drugs, medicaments and biological substances; Z79.1 Long term (current) use of non-steroidal anti-inflammatories (NSAID); Z79.2 Long term (current) use of antibiotics; Z79.899 Other long term (current) drug therapy